=== PATIENT | female | born 1985 | race Caucasian/White ===

== ENCOUNTER 2017-07-02 02:14 | Inpatient (IN) | payer BC ==
[2017-07-02] MEDS ORDERED: Phenaphthazine-PH Test Paper VI ONE (02:41)
[2017-07-02 02:44] VITALS: BMI 30.6
[2017-07-02] MEDS: Lactated Ringer's 1,000 ML IV SCH (03:05)
[2017-07-02] MEDS ORDERED: Oxytocin 30 units/LR 500ML 30 U/500 ML BAG IV ONE (03:30)
[2017-07-02] MEDS ORDERED: ceFAZolin 2 GM in Sodium Chloride 0.9% 100 ML IVPB ONE ×3 (03:30→08:02)
[2017-07-02] MEDS ORDERED: Propofol 10 mg/ml Inj (20 ML) ONE ×2 (03:37→04:08)
[2017-07-02] MEDS ORDERED: Succinylcholine 200 mg/10 ml Inj IV ONE (03:37)
[2017-07-02] MEDS ORDERED: ceFAZolin IV 2 gm in Dextrose 2 GM/50 ML BAG IVPB ONE ×2 (03:51→05:45)
--- NOTE | 2017-07-02 04:19 | NBADN ---
Datetime: 07/02/2017 04:17 Nsy Prov Gen Appearance: Within Normal Limits Nsy Prov Gen Appearance: Within Normal Limits Nsy Prov Skin: Within Normal Limits Nsy Prov Neuro: Normal Tone; [place]; Grasp; Root; Suck Nsy Prov Musculoskeletal: Within Normal Limits; Full Range of Motion; Spontaneous Movement All Extre mities; Intact Clavicles; Clavicles without Crepitus; Gluteal Folds Symmetrical; Spine Within Normal Limits; No Sacral Dimple/Cyst Nsy Prov Head: Normal Fontanelles; Normocephalic; Sutures WNL Nsy Prov EENT: Mouth Within Normal Limits; Ears Within Normal Limits; Eyes Within Normal Limits; Eye s Red Reflex Bilaterally; Nose Within Normal Limits; Face Within Normal Limits Nsy Prov Cardiovascular: Within Normal Limits; Normal Pulses Nsy Prov Respiratory: Within Normal Limits Nsy Prov GI: Within Normal Limits; Soft; Normal Liver; Non Palpable Spleen; Patent Anus Nsy Prov Umbilicus: Within Normal Limits; Three Vessel Cord Nsy Prov : Normal Female Genitalia Nsy Prov Impression: Healthy Term ; Vital Signs Appropriate; Bonding Appropriately; Voiding a nd Stooling Nsy Prov Plan: Continue [place] [facility] Nsy Prov Impression/Plan Details: 34 weeks female, aga, PCS. Datetime: 07/02/2017 04:15 Mother's Rule Inc Maternal Age: Age >=35 at MELISSA not specified Mother's Rule Thalassemia: Thalassemia History not specified Mother's Rule Neural Tube Defect: Neural Tube Defect History not specified Mother's Rule Congenital Heart: Congenital Heart Defect not specified Mother's Rule Down Syndrome: Down Syndrome History not specified Mother's Rule Teofilo-Sachs: Teofilo-Sachs History not specified Mother's Rule Ruba: Ruba History not specified Mother's Rule Familial Dysauto: Familial Dysautonomia History not specified Mother's Rule Sickle Cell: Sickle Cell Disease/Trait History not specified Mother's Rule Hemophilia: Hemophilia/Blood Disorder History not specified Mother's Rule Muscular Dystrophy: Muscular Dystrophy History not specified Mother's Rule Cystic Fibrosis: Cystic Fibrosis History not specified Mother's Rule Chema's Chor: [place]'s Chorea History not specified Mother's Rule Mental Retardation: Mental Retardation/Autism History not specified Mother's Rule Fragile X: Fragile X Testing History not specified Mother's Rule Oth Inherited DO: Other Inherited/Chromosomal Disorders not specified Mother's Rule Maternal Metabolic: Maternal Metabolic History not specified Mother's Rule FOB Defects: Pt Father or FOB Defect History not specified Mother's Rule Hx Stillborn MBL: Loss/Stillborn History not specified Mother's Rule Other Genetic Hx: Other Genetic History not specified Mother's Rule Drugs/Medications: Drugs/Medications History not specified Mother's Rule Gonorrhea: Gonorrhea History Not Specified Mother's Rule Chlamydia: Chlamydia History not specified Mother's Rule Syphilis: Syphilis History not specified Mother's Rule HIV/AIDS Exp: HIV/Aids Exposure not specified Mother's Rule HPV: Human Papillomavirus History not specified Mother's Rule Genital Herpes: Genital Herpes not specified Mother's Rule TB: Tuberculosis History not specified Mother's Rule Hepatitis: Hepatitis History Not Specified Mother's Rule Rash or Viral Ill: Rash or Viral Illness History not specified Mother's Rule Diabetes: Diabetes History not specified Mother's Rule Hypertension MBL: History of Hypertension Not Specified Mother's Rule Heart Disease: Heart Disease History not specified Mother's Rule Autoimmune: Autoimmune Disorder History not specified Mother's Rule Kidney Disease: History of Kidney Disease/UTI not specified Mother's Rule Neurologic: Neurologic/Epilepsy Disorders not specified Mother's Rule Psych Disorders: Psychiatric Disorder History not specified Mother's Rule Depression/PP Dep: Depression/ Depression History not specified Mother's Rule Hepaitis/tLiver: History of Hepatitis/Liver Disease not specified Mother's Rule Varicos/Phlebitis: Varicosities/Phlebitis History Not Specified Mother's Rule Thyroid Dysfunct: Thyroid Dysfunction not specified Mother's Rule Trauma/Violence: Trauma/Violence History Not Specified Mother's Rule Blood Transfusion: Blood Transfusion History not specified Mother's Rule Sensitization: D (Rh) Sensitization not specified Mother's Rule Pulmonary: Pulmonary (Asthma, TB) History not specified Mother's Rule Breast: Breast History not specified Mother's Rule Msw Surgery: Msw Surgery Hx not specified Mother's Rule Hosp/Surgery: Hospitalization/Surgery History not specified Mother's Rule Anesthetic Comp: Anesthetic Complications Hx not specified Mother's Rule Abnormal Pap: Abnormal Pap Smear not specified Mother's Rule Uterine Anomaly: Uterine Anomaly/CLAUDIA not specified Mother's Rule Infertility: Infertility Not Specified Mother's Rule ART Treatment: ART Treatment History not specified Mother's Rule Other Med Disease: Other Medical Diseases History not specified Mother's Rule Family History: Significant Family History not specified
--- NOTE | 2017-07-02 04:20 | DELATT ---
Datetime: 07/02/2017 04:15 Del Note Departure Status: NICU Observation Del Note Time: 30 Del Note Status: 34 weeks female, AGA, PCS. ABG 02/19. Del Note Reason for Attend Other: cord prolapse Del Note Interventions: Assessment; Stimulation; Drying Del Note Reason for Attending: Section YESENIA/NICU Del Atten Note Adm
[2017-07-02] MEDS ORDERED: ePHEDrine 50 mg/ml Inj ONE (04:31)
[2017-07-02] MEDS ORDERED: Oxycodone/Acetaminophen 5/325 mg Tab PO PRN ×6 (04:46→12:42)
[2017-07-02] MEDS ORDERED: Dexamethasone 4 mg/1 ml IVP PRN (04:53)
[2017-07-02] MEDS ORDERED: Naloxone 0.4 mg/ml Inj (Adult) IVP PRN ×3 (04:54→12:42)
--- NOTE | 2017-07-02 04:56 | OBHP ---
Datetime: 07/02/2017 03:30 IP Adm Impression: , intrauterine ; No Active Labor IP Adm Impression Other: Umbilical cord prolapse IP Admit Plan: Admit to unit; Initiate Section protocol Admit Comment, IP Provider: with IUP at 34.5wks c/o spontaneous leakage of fluid @2:30am report s to the LND. She denies any VB and felt movements. 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 [place]- irregular, FHR- Category 2, Speculum exam: Gross pooling of amniotic fluid with loops of Pro lapsed umbilical cord seen. [place] pulsating. Assessment: IUP at 34.5wks with SROM Umbilical cord prolapse. Plan: Admit to the LND Prepare for stat Delivery Folleys Catheter inserted and clamped to elevate the presenting part. washing machine loader and puller to the OR. Extremities - PN: Normal Abdomen - PN: Normal Back - PN: Normal Lungs - PN: Normal Heart - PN: Normal General - PN: Normal Presentation-Admit: Breech FHR - Baseline A Provider: 130 Amniotic Fluid Color, Provider: Clear Membranes, Provider: Ruptured Contraction Comments Provider: Irregular Gestation - Est Wks by US: 34.5 Pool Provider: Positive Nitrazine Provider: Positive EGA AdmitDate IP: 34.5 IP Chief Complaint: Uterine contractions; Suspected ruptured membranes; Maternal discomfort NICHD Variability Prov Fetus A: Moderate 6-25bpm NICHD Accel Fetus A IP Provider: [id number] FHR Category Provider Fetus A: Category II NICHD Decel Fetus A IP Provider: Late; Variable Dilatation, Provider: 3 Effacement, Provider: 50 Station, Provider: -3 Genitourinary Exam: Normal
--- NOTE | 2017-07-02 05:03 | OBDS ---
DELIVERY PERSONNEL Delivery Doctor: Abundio Eddy MD Scrub Nurse: Judie Dean Community Organization Worker: Keysha West RN Anesthesiologist: Jaiden Potter MD Resident: Ninoska POLK MATERNAL INFORMATION Delivery Anesthesia: General Medications in Delivery: oxytocin 30 units/500cc LR Estimated Blood Loss (ml): 500 Placenta Cultured: Yes Maternal Complications: None Provider Comments: delivery of a viable female delivered with footling breech presentation with BW of 2140gms and scores of 9 and 9. Baby was breech and located in the right horn of the bicornuate uterus. EBL- 500mls Uterus repaired in 2 layers. LABOR SUMMARY EDC: 08/08/2017 00:00 No. Babies in Womb: 1 Attempted: No Labor Anesthesia: None LABOR INFORMATION Reason for Induction: Not Applicable Onset of Labor: 07/02/2017 01:00 Oxytocin: N/A Group B Beta Strep: Not Done Steroids Given: None Reason Steroids Not Administered: Not Applicable MEMBRANES Membranes Rupture Method: Spontaneous Rupture of Membranes: 07/02/2017 00:40 Length of Rupture (hrs): 3.13 Amniotic Fluid Color: Clear Amniotic Fluid Amount: Moderate STAGES OF LABOR Stage 3 hrs: 0 Stage 3 min: 1 Total Time in Labor hrs: 2 Total Time in Labor min: 49 CSECTION DELIVERY Primary Indication: Prolapsed Cord Secondary Indication: N/A CSection Urgency: Emergency CSection Incidence: Primary Labor: Labor Elective: Elective CSection Incision: Lower Uterine Transverse Uterine Closure: Double-layer closure BABY A INFORMATION Infant Delivery Date/Time: 07/02/2017 03:48 Method of Delivery: Born in Route : No : N/A Forceps: N/A Vacuum Extraction: N/A Shoulder Dystocia : No SHOULDER DYSTOCIA BABY A Delivery Date/Time: 07/02/2017 03:48 PRESENTATION/POSITION BABY A Presentation: Breech Cephalic Presentation: N/A Breech Presentation: Double Footling PLACENTA INFORMATION BABY A Placenta Delivery Time : 07/02/2017 03:49 Placenta Method of Delivery: Manual Removal Placenta Status: Delivered SCORES BABY A Heart Rate 1 min: >100 bpm Resp Effort 1 min: Good Cry Reflex Irritability 1 min: Cough or Sneeze or Pulls Away Muscle Tone 1 min: Active Motion Color 1 min: Body Twisp, Extremities Blue SCORE 1 MIN: 9 Heart Rate 5 min: >100 bpm Resp Effort 5 min: Good Cry Reflex Irritability 5 min: Cough or Sneeze or Pulls Away Muscle Tone 5 min: Active Motion Color 5 min: Body Twisp, Extremities Blue SCORE 5 MIN: 9 INFANT INFORMATION BABY A Gestational Age at Delivery: 34.6 Gestational Status: Outcome : Liveborn Condition : Stable Sex: Female WEIGHT/LENGTH BABY A Birthweight (gms): 2140 Weight (lb): 4 Weight (oz): 11 CORD INFORMATION BABY A Nuchal Cord : N/A Cord Blood Taken: Yes
[2017-07-02] MEDS: HYDROmorphone 0.5 mg/0.5 ml ISec IVP PRN ×3 (05:11→05:35)
--- NOTE | 2017-07-02 05:12 | PCM.SURG1 ---
Surgeon's Initial Post Op Note - Surgeon's Notes Surgeon: Dr Eddy Change Management Coordinator: Howie Macias( Family Practice resident) Type of Anesthesia: General Endo Anesthesia Administered By: Dr Potter Pre-Operative Diagnosis: IUP at 34.5wks with Spontaneous Ruture of Membranes. Prolapsed Umbilical Cord in vagina Operative Findings: Live female with BW of 2140gms delivered in footling breech position and located in the Right horn of a bicornuate uterus. The rudimentary left horn was seen seperate from the right with its corresponding normal appearing fallopian tubes. The right fallopian tube appeared normal as well as normal appearing bilateral ovaries. Placenta was fundal with clear amniotic fluids. IV Fluid intake - 1200mls. EBL- 500mls. Urine Output 200nls. Post-Operative Diagnosis: Same as Preop diagnosis Operation Performed: Primary Low Section Specimen/Specimens Removed: Placenta Estimated Blood Loss: EBL {In ML}: 500 Blood Products Given: N/A Post-Op Condition: Good Date of Surgery/Procedure: 07/02/17 Time of Surgery/Procedure: 05:18
[2017-07-02] MEDS ORDERED: Oxytocin 20 UNITS in Lactated Ringer's 500 ML IV SCH (05:52)
[2017-07-02] MEDS ORDERED: Oxytocin 30 UNITS in Sodium Chloride 0.9% 500 ML IV ONE (06:00)
[2017-07-02 06:29] LABS: EOS % 0.1 % (0.0-4.0); HEMOGLOBIN 12.7 g/dL (12.0-16.0); LYMPH # 1.3 K/uL (1.0-4.3); LYMPH % 7.5 % (20.0-40.0); MEAN CELL VOLUME 91.5 fl (81.0-99.0); MEAN CORPUSCULAR HEMOGLOBIN 29.9 pg (27.0-31.0); MEAN CORPUSCULAR HGB CONC 32.7 g/dL (33.0-37.0); MEAN PLATELET VOLUME 8.6 fl (7.2-11.7); MONO # 0.5 K/uL (0.0-0.8); MONO % 3.2 % (0.0-10.0); NEUT # 15.2 K/uL (1.8-7.0); NEUT % 89.2 % (50.0-75.0); PLATELET COUNT 189 K/uL (130-400); RBC 4.26 Mil/uL (3.80-5.20); RED CELL DISTRIBUTION WIDTH 12.9 % (11.5-14.5)
[2017-07-02 06:55] VITALS: O2SAT 100
[2017-07-02] MEDS ORDERED: cefOXitin 2 GM in Sodium Chloride 0.9% 100 ML IVPB SCH ×3 (09:00→17:00)
[2017-07-02 12:43] LABS: BANDS 1 % (0-2); LYMPHOCYTE 5 % (20-50); MONOCYTE 2 % (0-10); NEUTROPHIL 92 % (42-75); PLATELET ESTIMATE NORMAL (NORMAL); TOTAL CELLS COUNTED 100
--- NOTE | 2017-07-02 14:20 | OP ---
PROCEDURE DATE: PREOPERATIVE DIAGNOSES: An intrauterine at 34 weeks plus 5 days with spontaneous rupture of membranes and prolapsed umbilical cord in the vagina. POSTOPERATIVE DIAGNOSES: An intrauterine at 34 weeks plus 5 days with spontaneous rupture of membranes and prolapsed umbilical cord in the vagina. PROCEDURE DONE: A primary low-transverse section performed on 07/02/2017. SURGEON: Jimbo Eddy MD SPLITTING MACHINE OPERATOR HELPER: Howie Macias, family practice resident. Assistance to this procedure was needed for exposure of tissues and helping the conduct of the surgery. The accounting assistant remained with the surgery throughout its entire length. TYPE OF ANESTHESIA: General endotracheal. ANESTHESIA ADMINISTERED BY: Dr. Potter. FINDINGS: A live female with weight of 2140 grams. scores of 9 in the first and fifth minutes respectively. The baby was delivered in footling breech position and was located in the right horn of bicornuate uterus. Rudimentary left horn of the uterus was seen separate from the right with this corresponding normal-appearing fallopian tube. The right fallopian tube appeared normal as well as the normal-appearing bilateral ovaries. Placenta was fundal with clear amniotic fluid. INTRAVENOUS FLUID INTAKE: 1200 mL. ESTIMATED BLOOD LOSS: 500 mL. URINE OUTPUT: About 200 mL. COMPLICATIONS: There were no complications. SPECIMEN: The placenta was sent for histopathology and further evaluation. DESCRIPTION OF PROCEDURE: After obtaining informed consent and explaining all the risks, benefits, and alternatives to the procedure of an emergent section, the patient was sent to the OR with IV running and Sepulveda catheter in place. The patient was placed in a supine position on the OR table. After adequate general anesthesia, the patient was prepped and draped in the usual sterile fashion. A Pfannenstiel skin incision was made using the scalpel about 2.5 cm from the pubic symphysis. This incision carried through the subcutaneous layer till the rectus fascia was identified. Transverse incision was made at this point and was extended to both sides in a blunt fashion. The rectus muscles were lifted off the underlying rectus muscles, both superiorly and inferiorly by means of blunt dissection. The rectus muscle was in the midline to expose the peritoneum, which was tented between 2 Sandy clamps and bluntly entered. Once the abdominal cavity was entered, the vesicouterine fold of the peritoneum was identified at this point. A low transverse incision was made using the scalpel just on the superior portion of it and was extended through the myometrial layers till the amniotic membranes were seen at this point. The incision was extended to both sides in a blunt fashion and the baby which was located in the right horn of bicornuate uterus in a footling breech presentation was delivered by means of traction on the right lower limb. Baby cried immediately after delivery and the umbilical cord was clamped and cut and the baby given to the nurse. Umbilical cord blood for analysis were taken and the placenta manually removed from the uterine cavity. The above findings were noted. The uterus was then brought out of the abdominal cavity and uterine cavity cleaned of all debris using dry laparotomy pads. The uterine incision was then closed in two layers, using Vicryl #0, the first layer in a running locked fashion and the second layer in running fashion imbricating the first layer. Once hemostasis has been noted after repair of a hysterotomy incision, irrigation of the pelvis using warm normal saline was conducted at this point. The uterus was returned into the abdominal cavity and once hemostasis was reassured, attention was turned over to the anterior abdominal wall, which was closed in layers with 2-0 Vicryl for the peritoneum and the rectus muscle. The rectus fascia was reapproximated using Vicryl #0. The subcutaneous tissue was brought together by me of #2-0 plain. The skin was closed in a subcuticular fashion using #4-0 Biosyn. All counts of instruments, laparotomy pads, and needles used were correct x3. The patient was sent to the recovery room in awake and stable condition. Jimbo Eddy MD DIANA
[2017-07-02] MEDS: cefOXitin 2 GM in Sodium Chloride 0.9% 100 ML IVPB SCH (20:09)
[2017-07-03] MEDS: cefOXitin 2 GM in Sodium Chloride 0.9% 100 ML IVPB SCH (05:06)
[2017-07-03 07:38] LABS: HEMOGLOBIN 11.1 g/dL (12.0-16.0); MEAN CORPUSCULAR HEMOGLOBIN 29.8 pg (27.0-31.0); MEAN CORPUSCULAR HGB CONC 32.7 g/dL (33.0-37.0); RBC 3.74 Mil/uL (3.80-5.20); RED CELL DISTRIBUTION WIDTH 13.1 % (11.5-14.5); WHITE BLOOD COUNT 15.4 K/uL (4.8-10.8)
--- NOTE | 2017-07-03 08:54 | OBPPN ---
Datetime: 07/03/2017 08:51 PP Pain Prov: Within normal limits PP Nausea Prov: Denies PP Flatus Prov: Yes PP Breasts Prov: Normal PP Heart Prov: Normal PP Lungs Prov: Normal PP Abdomen/Uterus Prov: Normal PP Lochia Prov: Normal PP Vulva/Perineum Prov: Normal PP CVA Tenderness Prov: Normal PP Extremities Prov: Normal PP C/S Incision Prov: Normal PP Progress Prov: Normal PP Comments Phys Exam Prov: Abd: Soft, NT, BS- present UT- Firm Incision- CLean and dry. PP Impression Prov: Normal progression PP Plan Prov: Continue present management PP Progress Note Prov: S/P Section secondary to cord prolapse, POD #1 Clinically Stable. Plan: D/c folley and IV Encourage ambulation Advance to regular diet. Vital Signs Provider PP: Reviewed
--- NOTE | 2017-07-04 11:06 | OBPPN ---
Datetime: 07/04/2017 11:04 PP Pain Prov: Within normal limits PP Nausea Prov: Denies PP Flatus Prov: Yes PP Breasts Prov: Normal PP Heart Prov: Normal PP Lungs Prov: Normal PP Abdomen/Uterus Prov: Normal PP Lochia Prov: Normal PP Vulva/Perineum Prov: Normal PP CVA Tenderness Prov: Normal PP Extremities Prov: Normal PP Comments Phys Exam Prov: Fundus felt under umbilicus incision clean/dry/intact PP Impression Prov: Normal progression PP Plan Prov: Continue present management PP Progress Note Prov: Patient denies CP, no SOB, no N/V, tolerating PO diet, ambulating/voiding wel l, mild lochia, +flatus, +BM, abdominal pain tolerable with meds A/P POD #2 1. continue postop orders 2. Percocet/Motrin prn pain 3. Encourage ambulation/ IP PP Procedures: None Vital Signs Provider PP: Reviewed; Within Normal Limits
--- NOTE | 2017-07-05 10:27 | OBPPN ---
Datetime: 07/05/2017 10:24 PP Pain Prov: Within normal limits PP Nausea Prov: Denies PP Flatus Prov: Yes PP BM Prov: Yes PP Breasts Prov: Not Done PP Heart Prov: Normal PP Lungs Prov: Normal PP Abdomen/Uterus Prov: Normal PP Lochia Prov: Normal PP Vulva/Perineum Prov: Normal PP CVA Tenderness Prov: Normal PP Extremities Prov: Normal PP C/S Incision Prov: Normal PP Progress Prov: Normal PP Impression Prov: Normal progression PP Plan Prov: Continue present management; Discharge PP Progress Note Prov: She feels fine POD 3 PLAN; discharge home and follow up in 1-2w Vital Signs Provider PP: Reviewed; Within Normal Limits
--- NOTE | 2017-07-05 10:27 | OBDCSUM ---
Datetime: 07/05/2017 09:47 Discharged to, Provider: Home Follow up at, Provider: Stella Hinojosa Instr Activity: Normal activity; May be up to bathroom; May be up for meals; May Shower Disch Instr Diet: Regular Discharge Instructions, Provider: Routine instructions given Discharge Time: 07/05/2017 12:00 Follow up in weeks, Provider: one to two weeks Disch Referrals: None Contraception discussed, Prov: Yes Disch Activity Restrictions: No lifting; No sexual activity; Nothing in vagina - [place], tampon s, douche Discharge Diagnosis Prov Other: breech in labor 34w - C/S
[2017-07-05 21:57] VITALS: BP 156/74; PULSE 79; RESP 20; TEMP 97.6
== END 2017-07-05 15:45 | disposition home or self-care (01) | DRG 765 ==
LOC: H.EROB2 02:14 → H.L&D 04:03 → H.OB/GYN 12:36
PROVIDERS: ADMIT Obstetrics & Gynecology; ATTEND Obstetrics & Gynecology
PROC: 10D00Z1 Extraction of Products of Conception, Low, Open Approach (ICD-10-PCS; principal; 2017-07-02)
PROC: 4A1HXCZ Monitoring of Products of Conception, Cardiac Rate, External Approach (ICD-10-PCS; 2017-07-02)
DX: O32.8XX0 Maternal care for other malpresentation of fetus, not applicable or unspecified (principal); O60.14X0 Preterm labor third trimester with preterm delivery third trimester, not applicable or unspecified; O69.0XX0 Labor and delivery complicated by prolapse of cord, not applicable or unspecified; O34.03 Maternal care for unspecified congenital malformation of uterus, third trimester; Q51.3 Bicornate uterus; Z3A.34 34 weeks gestation of pregnancy; Z37.0 Single live birth